=== PATIENT | female | born 1985 | race Caucasian/White ===

== ENCOUNTER 2017-04-03 21:35 | Emergency (ER) | payer MEDICAID, MEDICARE ==
[~2017-04-03] VITALS: Ht 167.6 cm; Wt 70.0 kg
[2017-04-03 21:40] VITALS: BP 135/84; PULSE 110; RESP 18; TEMP 98.4; O2SAT 99
[2017-04-03] MEDS ORDERED: SODIUM CHLOR 0.9% 1000 ML INJ 1,000 ML IV ONE ×2 (23:00)
[2017-04-03] MEDS ORDERED: SODIUM CHLORIDE 0.9% FLUSH 10 ML FLUSH IVF PRN (23:00)
[2017-04-03 23:01] VITALS: BP 135/78; PULSE 95; RESP 18; O2SAT 98
--- NOTE | 2017-04-03 23:04 | PD ---
HPI Chief Complaint: Cold / Flu Symptoms Time Seen by Provider: 22:50 Travel History International Travel<30 days: No Contact w/Intl Traveler<30days: No Traveled to known affect area: No History of Present Illness HPI Patient is a 31-year-old female who is 16 weeks , presents to emergency room with complaints of shortness of breath. Patient reports that she has been having a nonproductive cough as well as shortness of breath for the past 2 weeks. Patient reports that she has no fever/chills, no sick contacts. Reports that cough has been persistent. Patient is most concerned that as she has been having shortness of breath with minor exertion. Reports that she left a restaurant today and she felt sob and her heart racing. Reports that her heart rate went up to the 150's prior to coming to the ER. Patient denies any hx of pe/dvt. No family history of clotting disorder. Patient denies any recent travels/trips. PFSH Past Medical History Medical History: Denies Significant Hx Diminished Hearing: No Tetanus Vaccination: Unknown Influenza Vaccination: No ?: : 2 Para: 1 Past Surgical History Cholecystectomy: Yes Other Surgery: Yes (SURGERY ON LEFT EYE UNABLE TO MEMBER WHY, DONE WHEN A CHILD ) Social History Alcohol Use: No Tobacco Use: No Substance Use: No Allergies-Medications (Allergen,Severity, Reaction): Coded Allergies: No Known Allergies (Unverified , 04/03/17) Review of Systems General / Constitutional: No: Fever, Chills Eyes: No: Visual changes HENT: No: Headaches, Vertigo, Lightheadedness Cardiovascular: Positive: Palpitations, Tachycardia, No: Chest Pain or Discomfort Respiratory: Positive: Cough, Shortness of Breath, No: Wheezing, Sneezing Gastrointestinal: No: Abdominal Pain Genitourinary: No: Dysuria Musculoskeletal: No: Pain Skin: No Rash Neurologic: No: Weakness Psychiatric: No: Depression Endocrine: No: Polydipsia Hematologic/Lymphatic: No: Easy Bruising Physical Exam Narrative GENERAL: mild distress SKIN: Focused skin assessment warm/dry. HEAD: Atraumatic. Normocephalic. EYES: Pupils equal and round. No scleral icterus. No injection or drainage. ENT: No nasal bleeding or discharge. Mucous membranes pink and moist. NECK: Trachea midline. No JVD. CARDIOVASCULAR: Tachycardia. No murmur appreciated. RESPIRATORY: No accessory muscle use. Clear to auscultation. Breath sounds equal bilaterally. GASTROINTESTINAL: Abdomen soft, non-tender, nondistended. Hepatic and splenic margins not palpable. MUSCULOSKELETAL: No obvious deformities. No clubbing. No cyanosis. No edema. NEUROLOGICAL: Awake and alert. No obvious cranial nerve deficits. Motor grossly within normal limits. Normal speech. PSYCHIATRIC: Appropriate mood and affect; insight and judgment normal. Data Data Last Documented VS Vital Signs Date Time Temp Pulse Resp B/P Pulse Ox O2 Delivery O2 Flow Rate FiO2 04/03/17 23:01 95 18 135/78 98 Room Air 04/03/17 21:40 98.4 Orders Urinalysis - C+S If Indicated (04/03/17 22:20) Electrocardiogram (04/03/17 22:50) Complete Blood Count With Diff (04/03/17 22:50) Comprehensive Metabolic Panel (04/03/17 22:50) D-Dimer (04/03/17 22:50) Magnesium (Mg) (04/03/17 22:50) Prothrombin Time / Inr (Pt) (04/03/17 22:50) Act Partial Throm Time (Ptt) (04/03/17 22:50) Chest, Single Ap (04/03/17 22:50) Ecg Monitoring (04/03/17 22:50) Iv Access Insert/Monitor (04/03/17 22:50) Oximetry (04/03/17 22:50) Sodium Chloride 0.9% Flush (Ns Flush) (04/03/17 23:00) Influenzae A/B Antigen (04/03/17 22:50) Sodium Chlor 0.9% 1000 Ml Inj (Ns 1000 M (04/03/17 23:00) Sodium Chlor 0.9% 1000 Ml Inj (Ns 1000 M (04/03/17 23:00) Thyroid Stimulating Hormone (04/03/17 22:50) Potassium Chloride (Kcl) (04/04/17 00:15) Labs Laboratory Tests Test 04/03/17 04/03/17 18:55 23:10 Prothrombin Time 9.6 SEC Prothromb Time International 0.9 RATIO Ratio Activated Partial 26.1 SEC Thromboplast Time D-Dimer Quantitative (PE/DVT) 0.44 MG/L FEU White Blood Count 14.4 TH/MM3 Red Blood Count 3.96 MIL/MM3 Hemoglobin 12.0 GM/DL Hematocrit 34.7 % Mean Corpuscular Volume 87.5 FL Mean Corpuscular Hemoglobin 30.2 PG Mean Corpuscular Hemoglobin 34.5 % Concent Red Cell Distribution Width 12.7 % Platelet Count 231 TH/MM3 Mean Platelet Volume 9.1 FL Neutrophils (%) (Auto) 70.8 % Lymphocytes (%) (Auto) 22.3 % Monocytes (%) (Auto) 4.9 % Eosinophils (%) (Auto) 1.4 % Basophils (%) (Auto) 0.6 % Neutrophils # (Auto) 10.2 TH/MM3 Lymphocytes # (Auto) 3.2 TH/MM3 Monocytes # (Auto) 0.7 TH/MM3 Eosinophils # (Auto) 0.2 TH/MM3 Basophils # (Auto) 0.1 TH/MM3 CBC Comment DIFF FINAL Differential Comment Sodium Level 137 MEQ/L Potassium Level 3.4 MEQ/L Chloride Level 104 MEQ/L Carbon Dioxide Level 24.6 MEQ/L Anion Gap 8 MEQ/L Blood Urea Nitrogen 11 MG/DL Creatinine 0.60 MG/DL Estimat Glomerular Filtration 117 ML/MIN Rate Random Glucose 98 MG/DL Calcium Level 8.1 MG/DL Magnesium Level 1.8 MG/DL Total Bilirubin 0.3 MG/DL Aspartate Amino Transf 23 U/L (AST/SGOT) Alanine Aminotransferase 52 U/L (ALT/SGPT) Alkaline Phosphatase 75 U/L Total Protein 6.8 GM/DL Albumin 2.9 GM/DL Thyroid Stimulating Hormone 2.050 uIU/ML 3rd Gen [facility] Medical Decision Making Medical Screen Exam Complete: Yes Emergency Medical Condition: Yes Interpretation(s) EKG: NSR at 94bpm, qt/qtc: 362/414, no acute st or t wave changes Vital Signs Date Time Temp Pulse Resp B/P Pulse Ox O2 Delivery O2 Flow Rate FiO2 04/03/17 21:40 98.4 110 18 135/84 99 Room Air Differential Diagnosis Viral infection, URI, pneumonia, influenza, PE, electrolyte abnormality, arrhythmia, pneumothorax Narrative Course Patient is a 31 year old female who is 16 weeks , presents to the ER for evaluation of 2 weeks of nonproductive cough, sob and rapid heart rate. Patient has been symptomatic over the past 2 hours, nothing makes her symptoms better or worse. Patient is tachycardic with a HR of 110. Patient is sitting on stretcher and appears to be short of breath. Patient with no abdominal pain/cramping. She is [address] is [address] Dr. Álvarez in the office. Reports that this is her second - reports that she did develop htn after her first . Discussed concerns for possible PE with patient and need for PE workup. EKG ordered, cbc, bmp, d.dimer ordered. xray of chest ordered to evaluate for patient's cough and to evaluate for further etiology of sob. patient placed on assistant executive housekeeper upon arrival to ER. Will give IVF and continue to observe patient. Vital Signs Date Time Temp Pulse Resp B/P Pulse Ox O2 Delivery O2 Flow Rate FiO2 04/03/17 23:01 95 18 135/78 98 Room Air 04/03/17 21:40 98.4 110 18 135/84 99 Room Air Laboratory Tests Test 04/03/17 04/03/17 18:55 23:10 Prothrombin Time 9.6 SEC (9.8-11.6) Prothromb Time International 0.9 RATIO Ratio Activated Partial 26.1 SEC Thromboplast Time (24.3-30.1) D-Dimer Quantitative (PE/DVT) 0.44 MG/L FEU (0.00-0.50) White Blood Count 14.4 TH/MM3 (4.0-11.0) Red Blood Count 3.96 MIL/MM3 (4.00-5.30) Hemoglobin 12.0 GM/DL (11.6-15.3) Hematocrit 34.7 % (35.0-46.0) Mean Corpuscular Volume 87.5 FL (80.0-100.0) Mean Corpuscular Hemoglobin 30.2 PG (27.0-34.0) Mean Corpuscular Hemoglobin 34.5 % Concent (32.0-36.0) Red Cell Distribution Width 12.7 % (11.6-17.2) Platelet Count 231 TH/MM3 (150-450) Mean Platelet Volume 9.1 FL (7.0-11.0) Neutrophils (%) (Auto) 70.8 % (16.0-70.0) Lymphocytes (%) (Auto) 22.3 % (9.0-44.0) Monocytes (%) (Auto) 4.9 % (0.0-8.0) Eosinophils (%) (Auto) 1.4 % (0.0-4.0) Basophils (%) (Auto) 0.6 % (0.0-2.0) Neutrophils # (Auto) 10.2 TH/MM3 (1.8-7.7) Lymphocytes # (Auto) 3.2 TH/MM3 (1.0-4.8) Monocytes # (Auto) 0.7 TH/MM3 (0-0.9) Eosinophils # (Auto) 0.2 TH/MM3 (0-0.4) Basophils # (Auto) 0.1 TH/MM3 (0-0.2) CBC Comment DIFF FINAL Differential Comment Sodium Level 137 MEQ/L (136-145) Potassium Level 3.4 MEQ/L (3.5-5.1) Chloride Level 104 MEQ/L (98-107) Carbon Dioxide Level 24.6 MEQ/L (21.0-32.0) Anion Gap 8 MEQ/L (5-15) Blood Urea Nitrogen 11 MG/DL (7-18) Creatinine 0.60 MG/DL (0.50-1.00) Estimat Glomerular Filtration 117 ML/MIN Rate (>89) Random Glucose 98 MG/DL (74-106) Calcium Level 8.1 MG/DL (8.5-10.1) Magnesium Level 1.8 MG/DL (1.5-2.5) Total Bilirubin 0.3 MG/DL (0.2-1.0) Aspartate Amino Transf 23 U/L (15-37) (AST/SGOT) Alanine Aminotransferase 52 U/L (10-53) (ALT/SGPT) Alkaline Phosphatase 75 U/L (45-117) Total Protein 6.8 GM/DL (6.4-8.2) Albumin 2.9 GM/DL (3.4-5.0) Thyroid Stimulating Hormone 2.050 uIU/ML 3rd Gen (0.358-3.740) Last Impressions Chest X-Ray 04/03/17 [id number] Signed Impressions: Service Date/Time: March 23:27 - CONCLUSION: Normal examination for a patient of this age. Cristobal Dao MD cbc: wbc: 14.4 hgb 12 hct: 34.7 platetet 231 sodium 137 potassium 3.4 bun8 creatine 0.60 ddimer 0.44 influenza: neg xray of chest: normal exam without infiltrate patient with most likely viral syndrome. patient will follow up with her ob/ pressure dispatcher as well as her pcp. signs and symptoms of when to return to ER was reviewed with patient and her in detail. Diagnosis Primary Impression: Palpitations Additional Impressions: SOB (shortness of breath) Dehydration Patient Instructions: General Instructions Departure Forms: Tests/Procedures, Work Release Enter return to work date: April 07, 2017 Additional Instructions: Please drink plenty of fluids Return to emergency room if symptoms worsen or progress Please return to the emergency room as needed Please follow-up with your STAFF RADIATION THERAPIST as well as her primary care doctor in 2-3 days Disposition: 01 DISCHARGE HOME Condition: Stable Meera Hernandez DO April 03, 2017 23:04
[2017-04-03 23:23] LABS: AUTOMATED NEUTROPHIL # 10.2 TH/MM3 (1.8-7.7); BASOPHIL # 0.1 TH/MM3 (0-0.2); BASOPHIL % 0.6 % (0.0-2.0); EOSINOPHIL # 0.2 TH/MM3 (0-0.4); EOSINOPHIL % 1.4 % (0.0-4.0); HEMATOCRIT 34.7 % (35.0-46.0); HEMO FLAGS DIFF FINAL; LYMPH % 22.3 % (9.0-44.0); LYMPHOCYTE # 3.2 TH/MM3 (1.0-4.8); MEAN CELL VOLUME 87.5 FL (80.0-100.0); MEAN CORPUSCULAR HEMOGLOBIN 30.2 PG (27.0-34.0); MEAN CORPUSCULAR HGB CONC 34.5 % (32.0-36.0); MONO % 4.9 % (0.0-8.0); NEUT % 70.8 % (16.0-70.0); PLATELET COUNT 231 TH/MM3 (150-450); RED BLOOD COUNT 3.96 MIL/MM3 (4.00-5.30); RED CELL DISTRIBUTION WIDTH 12.7 % (11.6-17.2); WHITE BLOOD COUNT 14.4 TH/MM3 (4.0-11.0)
[2017-04-03 23:43] LABS: ANION GAP 8 MEQ/L (5-15); AST (GOT) 23 U/L (15-37); BICARBONATE 24.6 MEQ/L (21.0-32.0); BLOOD UREA NITROGEN 11 MG/DL (7-18); CHLORIDE 104 MEQ/L (98-107); GLOMERULAR FILTRATION RATE 117 ML/MIN (>89); MAGNESIUM 1.8 MG/DL (1.5-2.5); POTASSIUM 3.4 MEQ/L (3.5-5.1); SODIUM (NA) 137 MEQ/L (136-145)
--- NOTE | 2017-04-03 23:47 | RADRPT ---
EXAM DATE/TIME: 04/03/2017 23:27 [place] COMPARISON: No previous studies available for comparison. INDICATIONS : Shortness of breath. MEDICAL HISTORY : None. SURGICAL HISTORY : None. ENCOUNTER: Initial ACUITY: 2 weeks PAIN SCORE: 0/10 LOCATION: Bilateral chest FINDINGS: A single view of the chest demonstrates the lungs to be symmetrically aerated without evidence of mas s, infiltrate or effusion. The cardiomediastinal contours are unremarkable. Osseous structures are intact. CONCLUSION: Normal examination for a patient of this age. Cristobal Dao MD on April 03, 2017 at 23:44 Board Certified Radiologist. This report was verified electronically.
[2017-04-03 23:54] LABS: ALKALINE PHOSPHATASE 75 U/L (45-117); ALT (GPT) 52 U/L (10-53); TOTAL BILIRUBIN ADULT 0.3 MG/DL (0.2-1.0)
[2017-04-04 00:01] LABS: APTT (PATIENT) 26.1 SEC (24.3-30.1); INTERNATIONAL NORMALIZED RATIO 0.9 RATIO; PROTHROMBIN TIME - PATIENT 9.6 SEC (9.8-11.6)
[2017-04-04] MEDS ORDERED: POTASSIUM CHLORIDE 10 MEQ CONTROLLED RELEASE TAB PO ONE (00:15)
[2017-04-04 00:41] LABS: BACTERIA, URINE RARE /hpf; BLOOD, URINE NEG (NEG); COMMENT (UR) CULT NOT INDICATED; CULTURE IF INDICATED CULT NOT INDICATED; GLUCOSE,URINE NEG (NEG); KETONE, URINE NEG (NEG); NITRITE,URINE NEG (NEG); SQUAMOUS EPITHELIAL CELL URINE 3 /hpf (0-5); TRANSITIONAL EPI CELLS, URINE <1 /hpf; URINE COLOR LIGHT-YELLOW (YELLW/STRAW)
[2017-04-04 01:00] VITALS: BP 116/80
--- NOTE | 2017-04-04 07:36 | EKG ---
Date Performed: 04/04/2017 Time Performed: 00:06:40 PTAGE: 31 years EKG: Sinus rhythm INCOMPLETE RIGHT BUNDLE BRANCH BLOCK BORDERLINE ECG NO PREVIOUS TRACING DOCTOR: Mumtaz Lopez Interpretating Date/Time 04/04/2017 07:36:08
== END 2017-04-04 01:09 | disposition home or self-care (01) ==
LOC: NEPD 21:35
DX: O26.892 Other specified pregnancy related conditions, second trimester (principal); R00.2 Palpitations; R06.02 Shortness of breath; E86.0 Dehydration; R94.31 Abnormal electrocardiogram [ECG] [EKG]
CPT/HCPCS: 71010; 80053; 81001; 83735; 84443; 85025; 85379; 85610; 85730; 87804; 93005; 99285; J7030

== ENCOUNTER 2017-08-13 18:14 | Observation (INO) | payer MEDICAID ==
[~2017-08-13] VITALS: Ht 167.6 cm; Wt 87.0 kg
[2017-08-13] MEDS ORDERED: LABETALOL HCL 100 MG/20 ML VIAL IV PUSH PRN ×3 (19:00→19:15)
[2017-08-13] MEDS ORDERED: DOCUSATE SODIUM 100 MG CAP PO PRN (19:00)
[2017-08-13] MEDS ORDERED: ONDANSETRON HCL 4 MG/2 ML VIAL IV PRN (19:00)
[2017-08-13] MEDS ORDERED: SODIUM CHLORIDE 0.9% FLUSH 5 ML FLUSH IV PRN (19:00)
[2017-08-13] MEDS ORDERED: SODIUM CHLORIDE 0.9% FLUSH 10 ML FLUSH IV FLUSH PRN (19:00)
[2017-08-13] MEDS ORDERED: ZOLPIDEM TARTRATE 5 MG TAB PO PRN (19:00)
--- NOTE | 2017-08-13 19:10 | HHI.HP ---
HPI Chief Complaint pt of Dr. Borrego's/CHANDLER, admit for suspicion for PreEclampsia, possible labor induction Date Seen: Aug 13, 2017 Time Seen: 18:50 Travel History International Travel<30 Days: No Contact w/Intl Traveler<30Days: No Known Affected Area: Yes ([place], neg Zika testing) History of Present Illness HPI 31 yo with EDC 09/16/17, paredes female IUP at 35w1d, seen by Dr. Borrego in office today with finding of BP 150/90, new 2+ proteinuria on udip , and 8# weight gain in past week. Previously pt's BPs had been 110-120/60-70 range. Pt has h/o PreEclampsia and gestational HTN with G1, made it to 39 wks with that gestation. Pt denies headache, does c/o nausea and swelling, brisk reflexes per Dr. Borrego's exam. Sent to L&D for PreEclampsia workup, betamethasone, possible labor induction. Fetus vertex, per Dr. Tee exam 1cm dailted. Weeks Gestation: 35 Para: 1 : 2 Last Menstrual Period: Dec 10, 2016 Miscarriage: 0 : 0 History Past Medical History Narrative Medical gestational hypertension varicella non-immune Obstetric History Obstetric History G1 = at 39 wks male 7#6oz IOL for GHTN/PreE G2 = current female 35w1d on admit 08/13/17 Past Surgical History Narrative Surgical 2009 [facility] cholecystectomy Family History Family History: Negative Social History Alcohol Use: No Tobacco Use: No Substance Abuse: No Allergies-Medications (Allergen,Severity, Reaction): Coded Allergies: No Known Allergies (Unverified , 04/03/17) Review of Systems General / Constitutional: Weight Gain (8# in 1 week), No: Fever, Chills, Other Eyes: No: Diploplia, Blurred Vision, Visual changes, Pain, Photophobia HENT: No: Headaches, Vertigo, Lightheadedness Cardiovascular: No: Irregular Rhythm, Chest Pain or Discomfort, Palpitations, Tachycardia, Syncope, Varicosities, Edema, Cyanosis Respiratory: No: Cough, Short of Breath, Other Gastrointestinal: Nausea, No: Vomiting, Diarrhea Genitourinary: Pelvic Pain (pressure), No: Decreased Urinary Output, Oliguria Musculoskeletal: Edema, No: Limited ROM, Weakness, Cramping, Pain Skin: No Rash, No Itching, No Dryness, No Lumps, No Change in Pigmentation, No Change in Nails, No Alopecia, No Lesions Neurologic: No: Weakness, Dizziness, Syncope, Focal Abnormalities, Coordination Problem, Headache, Slurred Speech, Seizures Psychiatric: No: Depression, Suicidal Ideations, Homicidal Ideation Endocrine: No: Heat Intolerance, Cold Intolerance, Polydipsia, Polyuria, Other Physical Exam Narrative GENERAL: Well-nourished, well-developed patient. SKIN: Warm and dry. HEAD: Normocephalic and atraumatic. EYES: No scleral icterus. No injection or drainage. ENT: No nasal drainage noted. Mucous membranes pink. Airway patent. NECK: Supple, trachea midline. No JVD. CARDIOVASCULAR: Regular rate and rhythm without murmurs, gallops, or rubs. RESPIRATORY: Breath sounds equal bilaterally. No accessory muscle use. BREASTS: deferred ABDOMEN/GI: Abdomen soft, non-tender, bowel sounds present, no rebound, no guarding Gravid to [35] weeks size Fundal Height: [35] GENITOURINARY: [address] Borrego vertex FHT's: +150s EXTREMITIES: No cyanosis, +edema & brisk reflexes b/l LE. BACK: Nontender without obvious deformity. No CVA tenderness. NEUROLOGICAL: Awake and alert. Motor and sensory grossly within normal limits. Five out of 5 muscle strength in all muscle groups. Normal speech. Caprini VTE Risk Assessment Caprini VTE Risk Assessment: No/Low Risk (score <= 1) VTE Pharm Contraindication: High risk for bleeding Caprini Risk Assessment Model Point Value = 1 Point Value = 2 Point Value = 3 Point Value = 5 Age 41-60 Minor surgery BMI > 25 kg/m2 Swollen legs Varicose veins or History of unexplained or recurrent spontaneous Oral contraceptives or hormone replacement Sepsis (< 1 month) Serious lung disease, including pneumonia (< 1 month) Abnormal pulmonary function Acute myocardial infarction Congestive heart failure (< 1 month) History of inflammatory bowel disease Medical patient at bed rest Age 61-74 Arthroscopic surgery Major open surgery (> 45 min) Laparoscopic surgery (> 45 min) Malignancy Confined to bed (> 72 hours) Immobilizing plaster cast Central venous access Age >= 75 History of VTE Family history of VTE Factor V Leiden Prothrombin [id number] Lupus anticoagulant Anticardiolipin antibodies Elevated serum homocysteine Heparin-induced thrombocytopenia Other congenital or acquired thrombophilia Stroke (< 1 month) Elective arthroplasty Hip, pelvis, or leg fracture Acute spinal cord injury (< 1 month) Prophylaxis Regimen Total Risk Factor Score Risk Level Prophylaxis Regimen 0-1 Low Early ambulation 2 Moderate Order ONE of the following: *Sequential Compression Device (SCD) *Heparin 5000 units SQ BID 3-4 Higher Order ONE of the following medications: *Heparin 5000 units SQ TID *Enoxaparin/Lovenox 40 mg SQ daily (WT < 150 kg, CrCl > 30 mL/min) *Enoxaparin/Lovenox 30 mg SQ daily (WT < 150 kg, CrCl > 10-29 mL/min) *Enoxaparin/Lovenox 30 mg SQ BID (WT < 150 kg, CrCl > 30 mL/min) AND/OR *Sequential Compression Device (SCD) 5 or more Highest Order ONE of the following medications: *Heparin 5000 units SQ TID (Preferred with Epidurals) *Enoxaparin/Lovenox 40 mg SQ daily (WT < 150 kg, CrCl > 30 mL/min) *Enoxaparin/Lovenox 30 mg SQ daily (WT < 150 kg, CrCl > 10-29 mL/min) *Enoxaparin/Lovenox 30 mg SQ BID (WT < 150 kg, CrCl > 30 mL/min) AND *Sequential Compression Device (SCD) Data Data Vital Signs Reviewed: Yes Orders Orders Diet Heart Healthy (08/13/17 Dinner) Heart (08/13/17 18:50) Activity Bed Rest With Brp (08/13/17 18:50) Sodium Chloride 0.9% Flush (Ns Flush) (08/13/17 21:00) Sodium Chloride 0.9% Flush (Ns Flush) (08/13/17 19:00) Admit To Inpatient (08/13/17 ) Code Status (08/13/17 18:50) Vital Signs (Adult) Q5MX4,Q15MX4,Q30MX2,Q1H (08/13/17 18:50) Resp Pulse Oximetry (08/13/17 ) Activity Bed Rest (08/13/17 18:50) Intake + Output Q1H (08/13/17 18:50) Notify Parameters (08/13/17 18:50) Heart CONTINUOUS (08/13/17 18:50) ^ Check Deep Tendon Reflexes Q1H (08/13/17 18:50) Sodium Chloride 0.9% Flush (Ns Flush) (08/13/17 19:00) Sodium Chloride 0.9% Flush (Ns Flush) (08/13/17 21:00) Labetalol Inj (Trandate Inj) (08/13/17 19:00) Labetalol Inj (Trandate Inj) (08/13/17 19:00) Labetalol Inj (Trandate Inj) (08/13/17 19:15) Betamethasone Inj (Celestone Soluspan In (08/13/17 19:00) Acetaminophen (Tylenol) (08/13/17 19:00) Ondansetron Inj (Zofran Inj) (08/13/17 19:00) Docusate Sodium (Colace) (08/13/17 19:00) Zolpidem (Ambien) (08/13/17 19:00) Cbc No Diff, Includes Plts (08/13/17 18:50) Cbc No Diff, Includes Plts (08/14/17 06:00) Comprehensive Metabolic Panel (08/13/17 18:50) Comprehensive Metabolic Panel (08/14/17 06:00) Uric Acid (08/13/17 18:50) Uric Acid (08/14/17 06:00) Urinalysis - C+S If Indicated (08/13/17 18:50) Total Protein 24hr Urine (08/13/17 18:50) Creatinine 24 Hr Urine (08/13/17 18:50) Inpatient Certification (08/13/17 ) Specimen To Be Collected PRN (08/13/17 18:50) Labs GBS unknown Assessment/Plan Problem List: (1) Gestational hypertension affecting second ICD Codes: O13.9 - Gestational [-induced] hypertension without significant proteinuria, unspecified trimester; O09.40 - Supervision of with grand multiparity, unspecified trimester Assessment and Plan 31 yo with EDC 09/16/17, 35w1d today, admit for new gestational HTN, possible PreEclampsia, possible labor induction. 1) new GHTN, h/o PreEclampsia: admit to [facility], get labs and start 24h urine, order betamethasone for FLM, if pressures or symptoms become severe pt aware induction indicated; continuous monitoring; GBS unknown & , if induction indicated will plan for ABx; SCDs for now 2) status: vertex, female, +FHTs 150s in office, for continuous monitoring while inpt 3) varicella non-immune 4) h/o travel to [place]: Zika testing performed and negative 5) dispo: not meeting criteria Discharge Planning not meeting criteria Cindy Blackwood MD Aug 13, 2017 19:10
[2017-08-13 19:52] LABS: HEMATOCRIT 32.6 % (35.0-46.0); MEAN CELL VOLUME 80.9 FL (80.0-100.0); MEAN CORPUSCULAR HEMOGLOBIN 26.3 PG (27.0-34.0); MEAN CORPUSCULAR HGB CONC 32.5 % (32.0-36.0); PLATELET COUNT 145 TH/MM3 (150-450); RED BLOOD COUNT 4.03 MIL/MM3 (4.00-5.30); RED CELL DISTRIBUTION WIDTH 14.9 % (11.6-17.2); REVIEW FLAG FINAL; WHITE BLOOD COUNT 13.3 TH/MM3 (4.0-11.0)
[2017-08-13 19:54] LABS: ANION GAP 9 MEQ/L (5-15); AST (GOT) 17 U/L (15-37); BICARBONATE 20.2 MEQ/L (21.0-32.0); BLOOD UREA NITROGEN 8 MG/DL (7-18); CHLORIDE 106 MEQ/L (98-107); GLOMERULAR FILTRATION RATE 125 ML/MIN (>89); POTASSIUM 3.7 MEQ/L (3.5-5.1); SODIUM (NA) 135 MEQ/L (136-145)
[2017-08-13 19:56] LABS: ALT (GPT) 15 U/L (10-53); URIC ACID 3.6 MG/DL (2.6-6.0)
[2017-08-13 19:58] LABS: ALKALINE PHOSPHATASE 140 U/L (45-117); TOTAL BILIRUBIN ADULT 0.3 MG/DL (0.2-1.0)
[2017-08-13] MEDS: BETAMETHASONE SOD PHOS/ACETATE SUSP 30 MG/5 ML VIAL IM SCH (20:59)
[2017-08-13] MEDS: SODIUM CHLORIDE 0.9% FLUSH 10 ML FLUSH IV FLUSH SCH (21:00)
[2017-08-13] MEDS: SODIUM CHLORIDE 0.9% FLUSH 5 ML FLUSH IV SCH (21:00)
[2017-08-14] MEDS: ACETAMINOPHEN 325 MG TAB PO PRN ×2 (03:37→16:22)
[2017-08-14 05:56] LABS: HEMATOCRIT 31.8 % (35.0-46.0); MEAN CELL VOLUME 80.6 FL (80.0-100.0); MEAN CORPUSCULAR HGB CONC 32.3 % (32.0-36.0); PLATELET COUNT 142 TH/MM3 (150-450); RED BLOOD COUNT 3.94 MIL/MM3 (4.00-5.30); RED CELL DISTRIBUTION WIDTH 14.9 % (11.6-17.2); REVIEW FLAG FINAL; WHITE BLOOD COUNT 13.7 TH/MM3 (4.0-11.0)
[2017-08-14 06:20] LABS: ALT (GPT) 14 U/L (10-53); ANION GAP 9 MEQ/L (5-15); AST (GOT) 14 U/L (15-37); BICARBONATE 19.3 MEQ/L (21.0-32.0); BLOOD UREA NITROGEN 6 MG/DL (7-18); CHLORIDE 108 MEQ/L (98-107); GLOMERULAR FILTRATION RATE 117 ML/MIN (>89); POTASSIUM 4.1 MEQ/L (3.5-5.1); SODIUM (NA) 136 MEQ/L (136-145); URIC ACID 3.9 MG/DL (2.6-6.0)
[2017-08-14 06:21] LABS: ALKALINE PHOSPHATASE 130 U/L (45-117); TOTAL BILIRUBIN ADULT 0.3 MG/DL (0.2-1.0)
--- NOTE | 2017-08-14 07:59 | PD.OB.ANTE ---
Subjective Diagnosis: (1) Gestational hypertension affecting second Interval History 31 yo wf at 35 2/ admitted yesterday with BP 150/90, 2+ protein, 8 pound weight gain in two weeks and nausea. Hx of pre eclampsia with first child at term. On arrival was normotensive and has remained so. No STUBBS, Nausea, vomiting or RUQT at this time. She is hungry. Objective Lab & Micro Results Test 08/13/17 18:50 08/14/17 05:40 White Blood Count 13.3 TH/MM3 13.7 TH/MM3 Red Blood Count 4.03 MIL/MM3 3.94 MIL/MM3 Hemoglobin 10.6 GM/DL 10.3 GM/DL Hematocrit 32.6 % 31.8 % Mean Corpuscular Volume 80.9 FL 80.6 FL Mean Corpuscular Hemoglobin 26.3 PG 26.0 PG Mean Corpuscular Hemoglobin Concent 32.5 % 32.3 % Red Cell Distribution Width 14.9 % 14.9 % Platelet Count 145 TH/MM3 142 TH/MM3 Mean Platelet Volume 10.6 FL 9.7 FL Blood Urea Nitrogen 8 MG/DL 6 MG/DL Creatinine 0.57 MG/DL 0.60 MG/DL Random Glucose 66 MG/DL 122 MG/DL Total Protein 6.6 GM/DL 6.5 GM/DL Albumin 2.5 GM/DL 2.3 GM/DL Calcium Level 8.6 MG/DL 8.5 MG/DL Uric Acid 3.6 MG/DL 3.9 MG/DL Alkaline Phosphatase 140 U/L 130 U/L Aspartate Amino Transf (AST/SGOT) 17 U/L 14 U/L Alanine Aminotransferase (ALT/SGPT) 15 U/L 14 U/L Total Bilirubin 0.3 MG/DL 0.3 MG/DL Sodium Level 135 MEQ/L 136 MEQ/L Potassium Level 3.7 MEQ/L 4.1 MEQ/L Chloride Level 106 MEQ/L 108 MEQ/L Carbon Dioxide Level 20.2 MEQ/L 19.3 MEQ/L Anion Gap 9 MEQ/L 9 MEQ/L Estimat Glomerular Filtration Rate 125 ML/MIN 117 ML/MIN Physical Exam GENERAL: Well-nourished, well-developed patient. CARDIOVASCULAR: Regular rate and rhythm without murmurs, gallops, or rubs. RESPIRATORY: Breath sounds equal bilaterally. No accessory muscle use. ABDOMEN/GI: Abdomen soft, non-tender. Fundus: [-] GENITOURINARY: External Genitalia: intact and normal in appearance strip reactive with no decel not audra EXTREMITIES: No cyanosis non-tender, without signs of DVT. 2+ pitting edema Assessment and Plan Problem List: (1) Gestational hypertension affecting second ICD Codes: O13.9 - Gestational [-induced] hypertension without significant proteinuria, unspecified trimester; O09.40 - Supervision of with grand multiparity, unspecified trimester Assessment and Plan 31 yo with EDC 09/16/17, 35w1d today, admit for new gestational HTN, possible PreEclampsia, possible labor induction. 1) new GHTN, h/o PreEclampsia: admit to [facility], get labs and start 24h urine, order betamethasone for FLM, if pressures or symptoms become severe pt aware induction indicated; continuous monitoring; GBS unknown & , if induction indicated will plan for ABx; SCDs for now 2) status: vertex, female, +FHTs 150s in office, for continuous monitoring while inpt 3) varicella non-immune 4) h/o travel to [place]: Zika testing performed and negative 5) dispo: not meeting criteria As of 08/14/17--- only marker of concern is platelets 140s x 2. all other labs, vital signs and surveillance reassuring will complete 24 hour urine and steroid course and repeat CBC in am. If stable will allow discharge with close follow up. Megan Borrego MD Aug 14, 2017 07:58
[2017-08-14] MEDS: SODIUM CHLORIDE 0.9% FLUSH 10 ML FLUSH IV FLUSH SCH ×2 (08:59→09:04)
[2017-08-14] MEDS: SODIUM CHLORIDE 0.9% FLUSH 5 ML FLUSH IV SCH (09:00)
[2017-08-14 17:08] LABS: AUTOMATED NEUTROPHIL # 12.8 TH/MM3 (1.8-7.7); HEMATOCRIT 28.2 % (35.0-46.0); LYMPH % 10.8 % (9.0-44.0); LYMPHOCYTE # 1.7 TH/MM3 (1.0-4.8); MEAN CELL VOLUME 80.6 FL (80.0-100.0); MEAN CORPUSCULAR HEMOGLOBIN 26.6 PG (27.0-34.0); MONO % 5.8 % (0.0-8.0); NEUT % 83.4 % (16.0-70.0); PLATELET COUNT 149 TH/MM3 (150-450); RED CELL DISTRIBUTION WIDTH 15.1 % (11.6-17.2); WHITE BLOOD COUNT 15.4 TH/MM3 (4.0-11.0)
[2017-08-14 17:17] LABS: HEMO FLAGS AUTO DIFF
--- NOTE | 2017-08-14 17:50 | PD.OB.ANTE ---
Subjective Diagnosis: (1) Gestational hypertension affecting second Interval History Quiet day with reassuring strip and blood pressures urine back around 6:30 second steroid can be given then and she can go home. Objective Lab & Micro Results Test 08/13/17 18:50 08/14/17 05:40 08/14/17 16:27 White Blood Count 13.3 TH/MM3 13.7 TH/MM3 15.4 TH/MM3 Red Blood Count 4.03 MIL/MM3 3.94 MIL/MM3 3.50 MIL/MM3 Hemoglobin 10.6 GM/DL 10.3 GM/DL 9.3 GM/DL Hematocrit 32.6 % 31.8 % 28.2 % Mean Corpuscular Volume 80.9 FL 80.6 FL 80.6 FL Mean Corpuscular Hemoglobin 26.3 PG 26.0 PG 26.6 PG Mean Corpuscular Hemoglobin Concent 32.5 % 32.3 % 33.0 % Red Cell Distribution Width 14.9 % 14.9 % 15.1 % Platelet Count 145 TH/MM3 142 TH/MM3 149 TH/MM3 Mean Platelet Volume 10.6 FL 9.7 FL 11.3 FL Blood Urea Nitrogen 8 MG/DL 6 MG/DL Creatinine 0.57 MG/DL 0.60 MG/DL Random Glucose 66 MG/DL 122 MG/DL Total Protein 6.6 GM/DL 6.5 GM/DL Albumin 2.5 GM/DL 2.3 GM/DL Calcium Level 8.6 MG/DL 8.5 MG/DL Uric Acid 3.6 MG/DL 3.9 MG/DL Alkaline Phosphatase 140 U/L 130 U/L Aspartate Amino Transf (AST/SGOT) 17 U/L 14 U/L Alanine Aminotransferase (ALT/SGPT) 15 U/L 14 U/L Total Bilirubin 0.3 MG/DL 0.3 MG/DL Sodium Level 135 MEQ/L 136 MEQ/L Potassium Level 3.7 MEQ/L 4.1 MEQ/L Chloride Level 106 MEQ/L 108 MEQ/L Carbon Dioxide Level 20.2 MEQ/L 19.3 MEQ/L Anion Gap 9 MEQ/L 9 MEQ/L Estimat Glomerular Filtration Rate 125 ML/MIN 117 ML/MIN Neutrophils (%) (Auto) 83.4 % Lymphocytes (%) (Auto) 10.8 % Monocytes (%) (Auto) 5.8 % Eosinophils (%) (Auto) 0.0 % Basophils (%) (Auto) 0.0 % Neutrophils # (Auto) 12.8 TH/MM3 Lymphocytes # (Auto) 1.7 TH/MM3 Monocytes # (Auto) 0.9 TH/MM3 Eosinophils # (Auto) 0.0 TH/MM3 Basophils # (Auto) 0.0 TH/MM3 CBC Comment AUTO DIFF Physical Exam GENERAL: Well-nourished, well-developed patient. CARDIOVASCULAR: Regular rate and rhythm without murmurs, gallops, or rubs. RESPIRATORY: Breath sounds equal bilaterally. No accessory muscle use. ABDOMEN/GI: Abdomen soft, non-tender. Fundus: [-] GENITOURINARY: External Genitalia: intact and normal in appearance Cervix: [-] Dilatation: [-] Effacement: [-] Station: [-] Presentation: [-] Membranes: [-] Uterine Contractions: [-] FHT's: Category: [-] Baseline: [-] Reactive: [-] Variability: [-] Decels: [-] EXTREMITIES: No cyanosis or edema, non-tender, without signs of DVT. Assessment and Plan Problem List: (1) Gestational hypertension affecting second ICD Codes: O13.9 - Gestational [-induced] hypertension without significant proteinuria, unspecified trimester; O09.40 - Supervision of with grand multiparity, unspecified trimester Assessment and Plan 31 yo with EDC 09/16/17, 35w1d today, admit for new gestational HTN, possible PreEclampsia, possible labor induction. 1) new GHTN, h/o PreEclampsia: admit to [facility], get labs and start 24h urine, order betamethasone for FLM, if pressures or symptoms become severe pt aware induction indicated; continuous monitoring; GBS unknown & , if induction indicated will plan for ABx; SCDs for now 2) status: vertex, female, +FHTs 150s in office, for continuous monitoring while inpt 3) varicella non-immune 4) h/o travel to [place]: Zika testing performed and negative 5) dispo: not meeting criteria As of 08/14/17--- only marker of concern is platelets 140s x 2. all other labs, vital signs and surveillance reassuring will complete 24 hour urine and steroid course and repeat CBC in am. If stable will allow discharge with close follow up. Megan Borrego MD Aug 14, 2017 17:50
[2017-08-14 17:52] LABS: BANDS 6 % (0-6); NEUTROPHIL # MANUAL DIFF 13.7 TH/MM3 (1.8-7.7); POLYS (SEG NEUTROPHILS) 83 % (16-70); WBC DIFF SAMPLE 100
--- NOTE | 2017-08-14 17:52 | HHI.DCPOC ---
Discharge Care Plan Report Symptoms to Your Doctor -Temperature above 100.5 degrees -Redness, of incision or excessive or foul smelling drainage -Unusual pain or calf pain -Increased vaginal bleeding -Painful or difficulty urinating -Feelings of extreme sadness or anxiety after 2 weeks Goals to Promote Your Health * To prevent worsening of your condition and complications * To maintain your health at the optimal level Directions to Meet Your Goals Take your medications as prescribed Follow your dietary instruction Follow activity as directed Ensure plenty of rest for recovery Drink fluids for hydration Keep your appointments as scheduled Take your immunizations and boosters as scheduled If your symptoms worsen call your PCP, if no PCP go to Urgent Care Center or Emergency Room Smoking is Dangerous to Your Health. Avoid second hand smoke Call the 24-hour crisis hotline for domestic abuse at Megan Borrego MD Aug 14, 2017 17:52
[2017-08-14 17:53] LABS: PLATELET ESTIMATE SMEAR LOW (NORMAL); PLATELET MORPHOLOGY NORMAL (NORMAL); SCAN/DIFF FINAL DIFF MANUAL
[2017-08-14] MEDS: BETAMETHASONE SOD PHOS/ACETATE SUSP 30 MG/5 ML VIAL IM SCH (18:45)
[2017-08-14 20:14] LABS: URINE TOTAL PROTEIN TIMED 18.1 MG/DL
[2017-08-14 20:18] LABS: CREAT 24 TIMED 82.9 MG/DL
== END 2017-08-14 19:03 | disposition home or self-care (01) ==
LOC: INTOOBSV 18:14 → H2EB 18:14 → H2EA 18:41
PROVIDERS: ADMIT Obstetrics & Gynecology; ATTEND Obstetrics & Gynecology
DX: O13.3 Gestational [pregnancy-induced] hypertension without significant proteinuria, third trimester (principal); Z3A.35 35 weeks gestation of pregnancy
CPT/HCPCS: 80053; 82570; 84157; 84550; 85007; 85027; 96372; G0378; J0702

== ENCOUNTER 2017-08-18 16:32 | Inpatient (IN) | payer MEDICAID ==
[~2017-08-18] VITALS: Ht 167.6 cm; Wt 87.0 kg
[2017-08-18] VITALS (20 sets, daily range): BP systolic 118–148; BP diastolic 72–91; PULSE 76–93; RESP 18; TEMP 98.3–98.4
[2017-08-18] MEDS ORDERED: CITRIC ACID-SODIUM CITRATE LIQ 30 ML UDC PO SCH (16:45)
[2017-08-18] MEDS ORDERED: DINOPROSTONE 10 MG VAG INSERT VAGINAL ONE (16:45)
[2017-08-18] MEDS ORDERED: ONDANSETRON HCL 4 MG/2 ML VIAL IV PRN (16:45)
[2017-08-18] MEDS ORDERED: LIDOCAINE HCL 1% 50 ML VIAL I-DERMAL PRN (16:45)
[2017-08-18] MEDS ORDERED: ACETAMINOPHEN 325 MG TAB PO PRN (16:45)
[2017-08-18] MEDS ORDERED: LIDOCAINE HCL 1% 50 ML VIAL INFIL PRN (16:45)
[2017-08-18] MEDS ORDERED: CALCIUM GLUCONATE 10% 1 GM/10 ML VIAL IV PUSH PRN (16:45)
[2017-08-18] MEDS ORDERED: ONDANSETRON ODT 4 MG TAB PO PRN (16:45)
[2017-08-18] MEDS ORDERED: SODIUM CHLORID 0.9% 500 ML INJ 500 ML IV PRN (16:45)
[2017-08-18] MEDS ORDERED: MINERAL OIL 10 ML VIAL TOPICAL PRN (16:45)
[2017-08-18] MEDS ORDERED: DOCUSATE SODIUM 100 MG CAP PO PRN (16:45)
[2017-08-18] MEDS ORDERED: OXYTOCIN 30 UNITS-500ML PREMIX 500 ML IV ONE (16:45)
[2017-08-18] MEDS ORDERED: MAGNESIUM SULFATE 4 GM PREMIX 100 ML IV ONE (16:45)
[2017-08-18] MEDS ORDERED: SODIUM CHLORIDE 0.9% FLUSH 5 ML FLUSH IV PRN (16:45)
--- NOTE | 2017-08-18 16:54 | HHI.HP ---
HPI Chief Complaint headache Date Seen: Aug 18, 2017 Travel History International Travel<30 Days: No Contact w/Intl Traveler<30Days: No Known Affected Area: No History of Present Illness HPI PT is a 31 yo with iup at 35w6d by 10 wk u/s being admitted for pre-e with severe features. She is a pt of Dr. Davis; was noted to have elevated BP on 08/13 and sent to the hospital for pre-e workup. labs that day w platelets of 140, urine protein in 300's but all bp were normal; she was sent home on bedrest after receiving bms. She has not checked her bp at home. She has been having headaches. Denies visual changes. Has had abd cramping. On exam, she has RUQ tenderness. She has good movement, no vb/lof, no reg contractions. Weeks Gestation: 35 Para: 1 : 2 History Past Medical History Narrative Medical varicella [id number] pre-eclampsia Past Surgical History Narrative Surgical lsc cholecystectomy Family History Family History: Negative Social History Alcohol Use: No Tobacco Use: No Substance Abuse: No Allergies-Medications (Allergen,Severity, Reaction): Coded Allergies: No Known Allergies (Unverified , 04/03/17) Home Meds Reported Medications Diphenhydramine (Diphenhydramine) 25 Mg Cap, 25 MG PO HS Y for INSOMNIA, CAP 0 Refills 08/18/17 Vit-Iron Carbonyl ( Plus Iron 29-1 mg) 29 Mg Iron-1 Mg Tab, 1 TAB PO DAILY for Nutritional Supplement, #30 TAB 0 Refills 08/18/17 Review of Systems General / Constitutional: No: Fever, Weight Gain, Chills, Other Eyes: No: Diploplia, Blurred Vision, Visual changes, Pain, Photophobia HENT: No: Headaches, Vertigo, Lightheadedness Cardiovascular: No: Irregular Rhythm, Chest Pain or Discomfort, Palpitations, Tachycardia, Syncope, Varicosities, Edema, Cyanosis Respiratory: No: Cough, Short of Breath, Other Gastrointestinal: No: Nausea, Vomiting, Diarrhea Genitourinary: No: Decreased Urinary Output, Oliguria Musculoskeletal: No: Limited ROM, Weakness, Cramping, Edema, Pain Skin: No Rash, No Itching, No Dryness, No Lumps, No Change in Pigmentation, No Change in Nails, No Alopecia, No Lesions Neurologic: No: Weakness, Dizziness, Syncope, Focal Abnormalities, Coordination Problem, Headache, Slurred Speech, Seizures Psychiatric: No: Depression, Suicidal Ideations, Homicidal Ideation Endocrine: No: Heat Intolerance, Cold Intolerance, Polydipsia, Polyuria, Other Physical Exam Narrative GENERAL: Well-nourished, well-developed patient. SKIN: Warm and dry. HEAD: Normocephalic and atraumatic. EYES: No scleral icterus. No injection or drainage. ENT: No nasal drainage noted. Mucous membranes pink. Airway patent. NECK: Supple, trachea midline. No JVD. CARDIOVASCULAR: Regular rate and rhythm without murmurs, gallops, or rubs. RESPIRATORY: Breath sounds equal bilaterally. No accessory muscle use. BREASTS: Bilateral exam showed no masses , no retractions, no nipple discharge. ABDOMEN/GI: Abdomen soft, non-tender, bowel sounds present, no rebound, no guarding Gravid to36 weeks size GENITOURINARY: External Genitalia: intact and normal in appearance BUS glands: [-] Cervix: 1-2/th/high Presentation: ceph Membranes: [intact Uterine Contractions: [-] FHT's: BPP 8/8 in office EXTREMITIES: No cyanosis or edema. BACK: Nontender without obvious deformity. No CVA tenderness. NEUROLOGICAL: Awake and alert. Motor and sensory grossly within normal limits. Five out of 5 muscle strength in all muscle groups. Normal speech. Caprini VTE Risk Assessment Caprini VTE Risk Assessment: No/Low Risk (score <= 1) Caprini Risk Assessment Model Point Value = 1 Point Value = 2 Point Value = 3 Point Value = 5 Age 41-60 Minor surgery BMI > 25 kg/m2 Swollen legs Varicose veins or History of unexplained or recurrent spontaneous Oral contraceptives or hormone replacement Sepsis (< 1 month) Serious lung disease, including pneumonia (< 1 month) Abnormal pulmonary function Acute myocardial infarction Congestive heart failure (< 1 month) History of inflammatory bowel disease Medical patient at bed rest Age 61-74 Arthroscopic surgery Major open surgery (> 45 min) Laparoscopic surgery (> 45 min) Malignancy Confined to bed (> 72 hours) Immobilizing plaster cast Central venous access Age >= 75 History of VTE Family history of VTE Factor V Leiden Prothrombin [id number] Lupus anticoagulant Anticardiolipin antibodies Elevated serum homocysteine Heparin-induced thrombocytopenia Other congenital or acquired thrombophilia Stroke (< 1 month) Elective arthroplasty Hip, pelvis, or leg fracture Acute spinal cord injury (< 1 month) Prophylaxis Regimen Total Risk Factor Score Risk Level Prophylaxis Regimen 0-1 Low Early ambulation 2 Moderate Order ONE of the following: *Sequential Compression Device (SCD) *Heparin 5000 units SQ BID 3-4 Higher Order ONE of the following medications: *Heparin 5000 units SQ TID *Enoxaparin/Lovenox 40 mg SQ daily (WT < 150 kg, CrCl > 30 mL/min) *Enoxaparin/Lovenox 30 mg SQ daily (WT < 150 kg, CrCl > 10-29 mL/min) *Enoxaparin/Lovenox 30 mg SQ BID (WT < 150 kg, CrCl > 30 mL/min) AND/OR *Sequential Compression Device (SCD) 5 or more Highest Order ONE of the following medications: *Heparin 5000 units SQ TID (Preferred with Epidurals) *Enoxaparin/Lovenox 40 mg SQ daily (WT < 150 kg, CrCl > 30 mL/min) *Enoxaparin/Lovenox 30 mg SQ daily (WT < 150 kg, CrCl > 10-29 mL/min) *Enoxaparin/Lovenox 30 mg SQ BID (WT < 150 kg, CrCl > 30 mL/min) AND *Sequential Compression Device (SCD) Data Data Vital Signs Reviewed: Yes Orders Orders Activity Bed Rest (08/18/17 16:43) Intake + Output Q1H (08/18/17 16:43) Notify Dr. Burns (08/18/17 16:43) Heart CONTINUOUS (08/18/17 16:43) Urinary Catheter Management ERICA.Q8H (08/18/17 16:43) ^ Check Deep Tendon Reflexes Q1H (08/18/17 16:43) Diet Liquid (08/18/17 Dinner) Lactated Ringer's 1000 Ml Inj (Lr 1000 M (08/18/17 16:43) Sodium Chloride 0.9% Flush (Ns Flush) (08/18/17 16:45) Sodium Chloride 0.9% Flush (Ns Flush) (08/18/17 21:00) Magnesium Sulfate 40 Gm Premix (Magnesiu (08/18/17 16:43) Calcium Gluconate Inj (Calcium Gluconate (08/18/17 16:45) Acetaminophen (Tylenol) (08/18/17 16:45) Ondansetron Inj (Zofran Inj) (08/18/17 16:45) Ondansetron Odt (Zofran Odt) (08/18/17 16:45) Docusate Sodium (Colace) (08/18/17 16:45) Cbc No Diff, Includes Plts (08/18/17 16:43) Cbc No Diff, Includes Plts (08/19/17 06:00) Comprehensive Metabolic Panel (08/18/17 16:43) Comprehensive Metabolic Panel (08/19/17 06:00) Uric Acid (08/18/17 16:43) Uric Acid (08/19/17 06:00) Urinalysis - C+S If Indicated (08/18/17 16:43) Magnesium Sulfate 4 Gm Premix (Magnesium (08/18/17 16:45) Specimen To Be Collected PRN (08/18/17 16:43) Protein Creat Ratio, Random Ur (08/18/17 16:43) Vital Signs (Adult) .Per protocol (08/18/17 16:43) Heart (08/18/17 16:43) Amnioinfusion (08/18/17 16:43) Sodium Chlorid 0.9% 500 Ml Inj (Ns 500 M (08/18/17 16:45) Sodium Chlor 0.9% 1000 Ml Inj (Ns 1000 M (08/18/17 17:03) Lidocaine 1% Inj (50 Ml) (Xylocaine 1% I (08/18/17 16:45) Citric Acid-Sodium Citrate Liq (Bicitra (08/18/17 16:45) Fentanyl Inj (Fentanyl Inj) (08/18/17 16:45) Fentanyl Inj (Fentanyl Inj) (08/18/17 16:45) Hold Clot (08/18/17 16:43) Abo/Rh Blood Type (08/18/17 16:43) Resp Oxygen Non Rebreathe Mask (08/18/17 ) ^ Epidural / Intrathecal Infus (08/18/17 16:43) Oxytocin 30 Units-500ml Premix (Pitocin (08/18/17 16:45) Lidocaine 1% Inj (50 Ml) (Xylocaine 1% I (08/18/17 16:45) Light Mineral Oil (Muri-Lube Oil) (08/18/17 16:45) ^ Labor Induction (08/18/17 16:43) ^ Vaginal Insert (08/18/17 16:43) ^ Vaginal Lavage (08/18/17 16:43) Heart (08/18/17 16:43) Dinoprostone Vag Insert (Cervidil Vag In (08/18/17 16:45) Group B Strep: Negative Assessment/Plan Problem List: (1) Maternal varicella, non-immune ICD Codes: O09.899 - Supervision of other high risk pregnancies, unspecified trimester; Z28.3 - Underimmunization status (2) Preeclampsia, severe ICD Codes: O14.10 - Severe pre-eclampsia, unspecified trimester Assessment and Plan PT is a 31 yo with iup at 35w6d by 10 wk u/s being admitted for pre-e with severe features, STUBBS and RUQ pain. 1) Severe Pre-E- Pt has already received bms course last week; will proceed with iol with cervidil. Aware induction can be long process. - pih labs and P:C ratio pending. Last week platelets were 140. Will start magnesium as she has features of severity. 2) Varicella non-immune- needs vaccine pp 3) Fetus- cephalic, efw 7 lb today, bpp 8/8 4) GBS negative ChoNettie MD Aug 18, 2017 16:54
[2017-08-18] MEDS: LACTATED RINGER'S 1000 ML INJ 1,000 ML IV SCH (17:00)
[2017-08-18] MEDS ORDERED: DIPH25CA PO (17:14)
[2017-08-18] MEDS ORDERED: PREN29TA PO (17:14)
[2017-08-18] MEDS: MAGNESIUM SULFATE 40 GM PREMIX 1,000 ML IV SCH (17:48)
[2017-08-18] MEDS ORDERED: SODIUM CHLOR 0.9% 1000 ML INJ 1,000 ML IV PRN (18:00)
[2017-08-18 18:01] LABS: HEMATOCRIT 31.4 % (35.0-46.0); MEAN CELL VOLUME 80.1 FL (80.0-100.0); MEAN CORPUSCULAR HEMOGLOBIN 26.1 PG (27.0-34.0); MEAN CORPUSCULAR HGB CONC 32.6 % (32.0-36.0); PLATELET COUNT 141 TH/MM3 (150-450); RED BLOOD COUNT 3.92 MIL/MM3 (4.00-5.30); RED CELL DISTRIBUTION WIDTH 15.2 % (11.6-17.2); REVIEW FLAG FINAL
[2017-08-18 18:24] LABS: ALKALINE PHOSPHATASE 134 U/L (45-117); TOTAL BILIRUBIN ADULT 0.3 MG/DL (0.2-1.0)
[2017-08-18 18:29] LABS: ALT (GPT) 20 U/L (10-53); ANION GAP 10 MEQ/L (5-15); AST (GOT) 29 U/L (15-37); BICARBONATE 21.6 MEQ/L (21.0-32.0); BLOOD UREA NITROGEN 9 MG/DL (7-18); CHLORIDE 108 MEQ/L (98-107); GLOMERULAR FILTRATION RATE 115 ML/MIN (>89); POTASSIUM 3.9 MEQ/L (3.5-5.1); SODIUM (NA) 140 MEQ/L (136-145); URIC ACID 3.3 MG/DL (2.6-6.0)
[2017-08-18 19:33] LABS: BACTERIA, URINE FEW /hpf; BLOOD, URINE SMALL (NEG); GLUCOSE,URINE NEG (NEG); KETONE, URINE NEG (NEG); MUCUS URINE FEW /lpf (OCC); NITRITE,URINE NEG (NEG); SQUAMOUS EPITHELIAL CELL URINE 12 /hpf (0-5); URINE COLOR YELLOW (YELLW/STRAW)
[2017-08-18 19:34] LABS: COMMENT (UR) CATH-CULTURE IND; CULTURE IF INDICATED CATH CULTURE IND
[2017-08-18] MEDS ORDERED: SODIUM CHLORIDE 0.9% FLUSH 5 ML FLUSH IV SCH (21:00)
[2017-08-19] VITALS (47 sets, daily range): BP systolic 101–140; BP diastolic 49–88; PULSE 67–188; RESP 18–20; TEMP 98.3–99.3
[2017-08-19] MEDS ORDERED: OXYTOCIN 30 UNITS/NS 500ML PREMIX IV SCH (06:00)
[2017-08-19 06:01] LABS: MEAN CELL VOLUME 80.7 FL (80.0-100.0); MEAN CORPUSCULAR HGB CONC 32.3 % (32.0-36.0); PLATELET COUNT 139 TH/MM3 (150-450); RED BLOOD COUNT 3.72 MIL/MM3 (4.00-5.30); RED CELL DISTRIBUTION WIDTH 15.5 % (11.6-17.2); REVIEW FLAG FINAL; WHITE BLOOD COUNT 15.4 TH/MM3 (4.0-11.0)
[2017-08-19 06:27] LABS: BICARBONATE 22.7 MEQ/L (21.0-32.0); POTASSIUM 3.4 MEQ/L (3.5-5.1); TOTAL BILIRUBIN ADULT 0.3 MG/DL (0.2-1.0); URIC ACID 3.5 MG/DL (2.6-6.0)
[2017-08-19 06:33] LABS: CALCIUM-PROTEIN CORRECTED 7.3 MG/DL (8.5-10.1)
[2017-08-19] MEDS: LACTATED RINGER'S 1000 ML INJ 1,000 ML IV SCH (07:15)
[2017-08-19] MEDS ORDERED: ePHEDrine/NS 25 MG/5 ML SYR ONE (08:09)
[2017-08-19] MEDS ORDERED: fentaNYL 2MCG-BUPIV 0.125% INJ 100 ML ONE (08:09)
--- NOTE | 2017-08-19 08:39 | PD.LABORPN ---
Subjective Subjective starting to feel contractions Objective Vital Signs majority of bp normal, few mild bp Objective Pelvic Exam: 3-4/50/-2 Presentation:ceph Membranes: [intact , does not want arom until epidural placed Uterine Contractions:q 4-5 min FHT's: Category:I Baseline: 130 Reactive:y Variability:mod Decels: [-] A&O x3 Lungs CTAB Reflexes 1+ Weeks Gestation: 36 Gest Age Assessed Date: Aug 19, 2017 Gest Age Assessed Time: 08:36 Pt started active labor?: No Medical induction of labor?: Yes Medical induction start date: Aug 18, 2017 Medical induction start time: 18:00 Artificial rupture of membrane: No Assessment/Plan Problem List: (1) Maternal varicella, non-immune ICD Codes: O09.899 - Supervision of other high risk pregnancies, unspecified trimester; Z28.3 - Underimmunization status (2) Preeclampsia, severe ICD Codes: O14.10 - Severe pre-eclampsia, unspecified trimester Assessment and Plan PT is a 31 yo with iup at 36w by 10 wk u/s admitted for pre-e with severe features, STUBBS and RUQ pain. 1) Severe Pre-E- Pt has already received bms course last week; iol with cervidil, now on pit of 2. Aware induction can be long process. - pih labs with platelets of 139 and P:C ratio 0.33. Last week platelets were 140 She is on magnesium as she has features of severity. BP mild 2) Varicella non-immune- needs vaccine pp 3) Fetus- cephalic, efw 7 lb on u/s yesterday, bpp 8/8 4) GBS negative Nettie Cho MD Aug 19, 2017 08:39
[2017-08-19] MEDS ORDERED: fentaNYL 2MCG-BUPIV 0.125% 100 ML EPIDURAL SCH (11:00)
[2017-08-19] MEDS ORDERED: NO SYSTEM NARCOTICS PRN (11:00)
[2017-08-19] MEDS ORDERED: DO NOT ADMINISTER ANTICOAGULANTS PRN (11:00)
[2017-08-19] MEDS ORDERED: ePHEDrine/NS 25 MG/5 ML SYR IV PRN (11:00)
[2017-08-19] MEDS: MAGNESIUM SULFATE 40 GM PREMIX 1,000 ML IV SCH (12:10)
--- NOTE | 2017-08-19 15:27 | PD.OB.DELI ---
Weeks gestation: 36 Gest age assessed date: Aug 19, 2017 Gest age assessed time: 08:36 Pt started active labor?: No Medical induction of labor?: Yes Medical induction start date: Aug 18, 2017 Medical induction start time: 18:00 Artificial rupture of membrane: Yes Anesthesia: Epidural Episiotomy: None Vaginal Delivery: Normal Presentation: Occiput anterior, Compound (left arm) Nuchal Cord: None Delayed cord clamping (45 sec): Yes Infant: Female Delivery date: Aug 19, 2017 Delivery time: 15:03 One Minute : 9 Five Minute : 9 Weight: 2900g Placenta: Spontaneous delivery Laceration: Perineal laceration, 2 deg (and periurethral ) Repair: Chromic running Estimated blood loss: 600ml Additional Information Will continue magnesium pp for pre-eclampsia Nettie Cho MD Aug 19, 2017 15:27
[2017-08-19] MEDS ORDERED: SODIUM CHLORIDE 0.9% FLUSH 10 ML FLUSH IV FLUSH PRN (15:30)
[2017-08-19] MEDS ORDERED: OXYTOCIN 30 UNITS-500ML PREMIX 500 ML IV SCH (15:30)
[2017-08-19] MEDS ORDERED: ACETAMINOPHEN 325 MG TAB PO PRN (15:30)
[2017-08-19] MEDS ORDERED: MEASLES, MUMPS, RUBELLA VACCINE 0.5 ML VIAL SQ ONE (16:00)
[2017-08-19] MEDS ORDERED: DIPHTH/TETANUS/ACEL PERTUSSIS (BOOSTER) 0.5 ML VIAL/PFS IM ONE (16:00)
[2017-08-19] MEDS ORDERED: ONDANSETRON ODT 4 MG TAB PO PRN (16:00)
[2017-08-19] MEDS ORDERED: BENZOCAINE 20% TOPICAL SPRAY 60 ML CAN TOPICAL PRN (16:00)
[2017-08-19] MEDS ORDERED: ALUMINUM/MAGNESIUM/SIMETH 30 ML CUP PO PRN (17:00)
[2017-08-19] MEDS: IBUPROFEN 600 MG TAB PO PRN (17:29)
[2017-08-19] MEDS ORDERED: WITCH HAZEL 50%/GLYCERIN 12.5% 40 PAD JAR TOPICAL PRN (18:00)
[2017-08-19] MEDS ORDERED: ZOLPIDEM TARTRATE 5 MG TAB PO PRN (21:00)
[2017-08-19] MEDS: SODIUM CHLORIDE 0.9% FLUSH 10 ML FLUSH IV FLUSH SCH (21:00)
[2017-08-19] MEDS ORDERED: DOCUSATE SODIUM 50 MG/SENNA 8.6 MG TAB PO PRN (21:00)
[2017-08-20 05:55] LABS: HEMATOCRIT 28.1 % (35.0-46.0); MEAN CELL VOLUME 80.3 FL (80.0-100.0); MEAN CORPUSCULAR HEMOGLOBIN 25.9 PG (27.0-34.0); MEAN CORPUSCULAR HGB CONC 32.3 % (32.0-36.0); PLATELET COUNT 157 TH/MM3 (150-450); RED CELL DISTRIBUTION WIDTH 15.2 % (11.6-17.2); REVIEW FLAG FINAL; WHITE BLOOD COUNT 14.7 TH/MM3 (4.0-11.0)
[2017-08-20 06:42] LABS: BICARBONATE 23.6 MEQ/L (21.0-32.0); POTASSIUM 3.7 MEQ/L (3.5-5.1); TOTAL BILIRUBIN ADULT 0.3 MG/DL (0.2-1.0); URIC ACID 3.6 MG/DL (2.6-6.0)
[2017-08-20 07:27] LABS: CALCIUM-PROTEIN CORRECTED 6.9 MG/DL (8.5-10.1)
[2017-08-20] MEDS: IBUPROFEN 600 MG TAB PO PRN ×3 (07:41→21:15)
[2017-08-20] MEDS: MAGNESIUM SULFATE 40 GM PREMIX 1,000 ML IV SCH (08:17)
[2017-08-20] MEDS ORDERED: INFLUENZA VIRUS VACCINE (QUADRIVALENT) 0.5 ML SYR IM ONE (10:00)
--- NOTE | 2017-08-20 12:01 | HHI.OB ---
Subjective Post Day: 1 Remarks PPD#1, Preeclamptic with severe features; Doing well, Denies h/a, Abd. pain ,n/V Objective Vitals/I&O Vital Signs Date Time Temp Pulse Resp B/P (MAP) Pulse Ox O2 Delivery O2 Flow Rate FiO2 08/19/17 18:41 18 Objective Remarks GENERAL: Well-nourished, well-developed patient. CARDIOVASCULAR: Regular rate and rhythm without murmurs, gallops, or rubs. RESPIRATORY: Breath sounds equal bilaterally. No accessory muscle use. ABDOMEN/GI: Abdomen soft, non-tender. Fundus: Firm, non-tender at umbilicus. GENITOURINARY: Light to moderate bleeding. EXTREMITIES: No cyanosis or edema, non-tender, without signs of DVT. Medications and IVs Current Medications Medications (Trade) Dose Ordered Sig/Gudelia Route Start Time Stop Time Status Last Admin Lactated Ringer's 1,000 ml @ 75 mls/hr [id number] IV 08/18/17 17:00 08/19/17 07:15 Magnesium Sulfate 1,000 ml @ 50 mls/hr Q20H IV 08/18/17 16:43 08/20/17 08:17 (Calcium Gluconate Inj) 1 gm UNSCH PRN IV PUSH 08/18/17 16:45 Oxytocin 500 ml @ 0 mls/hr TITRATE IV 08/19/17 06:00 (NS Flush) 2 ml BID IV FLUSH 08/19/17 21:00 (NS Flush) 2 ml UNSCH PRN IV FLUSH 08/19/17 15:30 (Tylenol) 650 mg Q4H PRN PO 08/19/17 15:30 (Motrin) 600 mg Q6H PRN PO 08/19/17 17:00 08/20/17 07:41 (Americaine 20% Top Spr) 1 spray Q4HR PRN TOPICAL 08/19/17 16:00 (Tucks Pads) 1 applic QID PRN TOPICAL 08/19/17 18:00 (Yin-Colace) 2 tab Q12HR PRN PO 08/19/17 21:00 08/20/17 09:40 (Ambien) 5 mg HS PRN PO 08/19/17 21:00 (Mag-Al Plus Susp Liq) 15 ml Q8HR PRN PO 08/19/17 17:00 (Zofran Odt) 4 mg Q6H PRN PO 08/19/17 16:00 Assessment/Plan Problem List: (1) Maternal varicella, non-immune ICD Codes: O09.899 - Supervision of other high risk pregnancies, unspecified trimester; Z28.3 - Underimmunization status (2) Preeclampsia, severe ICD Codes: O14.10 - Severe pre-eclampsia, unspecified trimester Assessment and Plan PPD#1, Preeclampsia, on magnesium, stable, plan to stop Mag. now Discharge Planning does not meet criteria Attending Attestation seen by Justice Li MD Aug 20, 2017 12:01
[2017-08-20] MEDS: SODIUM CHLORIDE 0.9% FLUSH 10 ML FLUSH IV FLUSH SCH (21:00)
[2017-08-21] MEDS: IBUPROFEN 600 MG TAB PO PRN (03:05)
--- NOTE | 2017-08-21 07:53 | HHI.OB ---
Subjective Post Day: 2 Remarks doing well, BP better, no STUBBS, no BV, no CP Objective Vitals/I&O vss afeb Objective Remarks GENERAL: Well-nourished, well-developed patient. CARDIOVASCULAR: Regular rate and rhythm without murmurs, gallops, or rubs. RESPIRATORY: Breath sounds equal bilaterally. No accessory muscle use. ABDOMEN/GI: Abdomen soft, non-tender. Fundus: Firm, non-tender at umbilicus. GENITOURINARY: Light to moderate bleeding. EXTREMITIES: No cyanosis or edema, non-tender, without signs of DVT. Medications and IVs Current Medications Medications (Trade) Dose Ordered Sig/Gudelia Route Start Time Stop Time Status Last Admin Lactated Ringer's 1,000 ml @ 75 mls/hr [id number] IV 08/18/17 17:00 08/19/17 07:15 (Calcium Gluconate Inj) 1 gm UNSCH PRN IV PUSH 08/18/17 16:45 Oxytocin 500 ml @ 0 mls/hr TITRATE IV 08/19/17 06:00 (NS Flush) 2 ml BID IV FLUSH 08/19/17 21:00 (NS Flush) 2 ml UNSCH PRN IV FLUSH 08/19/17 15:30 (Tylenol) 650 mg Q4H PRN PO 08/19/17 15:30 (Motrin) 600 mg Q6H PRN PO 08/19/17 17:00 08/21/17 03:05 (Americaine 20% Top Spr) 1 spray Q4HR PRN TOPICAL 08/19/17 16:00 (Tucks Pads) 1 applic QID PRN TOPICAL 08/19/17 18:00 (Yin-Colace) 2 tab Q12HR PRN PO 08/19/17 21:00 08/20/17 09:40 (Ambien) 5 mg HS PRN PO 08/19/17 21:00 (Mag-Al Plus Susp Liq) 15 ml Q8HR PRN PO 08/19/17 17:00 (Zofran Odt) 4 mg Q6H PRN PO 08/19/17 16:00 Assessment/Plan Problem List: (1) Maternal varicella, non-immune ICD Codes: O09.899 - Supervision of other high risk pregnancies, unspecified trimester; Z28.3 - Underimmunization status (2) Preeclampsia, severe ICD Codes: O14.10 - Severe pre-eclampsia, unspecified trimester (3) Vaginal delivery ICD Codes: O80 - Encounter for full-term uncomplicated delivery Assessment and Plan PPD#2, Preeclampsia, s/p magnesium d/c home today office for BP check in 1-2 wks Discharge Planning routine Attending Attestation pt seen by Daphne Wilkins MD Aug 21, 2017 07:53
[2017-08-21] MEDS ORDERED: IBUP-232 PO (07:55)
--- NOTE | 2017-08-21 07:55 | HHI.DCPOC ---
Discharge Care Plan Your Health Problems Are: Pelvic pain Report Symptoms to Your Doctor -Temperature above 100.5 degrees -Redness, of incision or excessive or foul smelling drainage -Unusual pain or calf pain -Increased vaginal bleeding -Painful or difficulty urinating -Feelings of extreme sadness or anxiety after 2 weeks Goals to Promote Your Health * To prevent worsening of your condition and complications * To maintain your health at the optimal level Directions to Meet Your Goals Take your medications as prescribed Follow your dietary instruction Follow activity as directed Ensure plenty of rest for recovery Drink fluids for hydration Keep your appointments as scheduled Take your immunizations and boosters as scheduled If your symptoms worsen call your PCP, if no PCP go to Urgent Care Center or Emergency Room Smoking is Dangerous to Your Health. Avoid second hand smoke Call the 24-hour crisis hotline for domestic abuse at Daphne Vallecillo MD Aug 21, 2017 07:55
[2017-08-21] MEDS: SODIUM CHLORIDE 0.9% FLUSH 10 ML FLUSH IV FLUSH SCH (09:00)
[2017-08-21] MEDS ORDERED: INFLUENZA VIRUS VACCINE (QUADRIVALENT) 0.5 ML SYR IM ONE (13:39)
== END 2017-08-21 14:16 | disposition home or self-care (01) | DRG 775 ==
LOC: H2EA 16:32 → H1EA 08-20 14:25
PROVIDERS: ADMIT Obstetrics & Gynecology; ATTEND Obstetrics & Gynecology
PROC: 3E0P7GC Introduction of Other Therapeutic Substance into Female Reproductive, Via Natural or Artificial Opening (ICD-10-PCS; 2017-08-18)
PROC: 10E0XZZ Delivery of Products of Conception, External Approach (ICD-10-PCS; principal; 2017-08-19)
PROC: 0KQM0ZZ Repair Perineum Muscle, Open Approach (ICD-10-PCS; 2017-08-19)
PROC: 10907ZC Drainage of Amniotic Fluid, Therapeutic from Products of Conception, Via Natural or Artificial Opening (ICD-10-PCS; 2017-08-19)
DX: O14.14 Severe pre-eclampsia complicating childbirth (principal); O70.1 Second degree perineal laceration during delivery; Z37.0 Single live birth; Z3A.35 35 weeks gestation of pregnancy; Z23 Encounter for immunization; Z28.3 Underimmunization status
CPT/HCPCS: 59025; 80053; 81001; 82570; 84156; 84550; 85027; 86900; 86901; 87086; 88307; 90686; 90715; J2590; J3010; J3475; J7120; Q2038